=== PATIENT | male | born 1970 | race Caucasian/White ===

== ENCOUNTER 2016-06-11 11:16 | Observation (INO) | payer OTHER ==
[2016-06-11 11:16] VITALS: BMI 26.4
[2016-06-11 11:28] VITALS: RESP 18
--- NOTE | 2016-06-11 12:22 | C.PDOC ---
History Of Present Illness 45 y/o male, PMHx of chronic back pain, presents to ED with complaint of lower back pain. Patient states the pain is different than typical back pain, now worse on the right side. Patient also reports pain to RLQ abdomen and right inguinal area for 1 week. He notes pain has been intermittent but worsened today at work. Patient admits to heavy lifting; he denies history of hernias. Otherwise, denies nausea, vomiting, bowel changes, urinary incontinence, bowel incontinence, weakness, or numbness. Time Seen by Provider: 06/11/16 12:11 Chief Complaint (Nursing): Male Genitourinary History Per: Patient History/Exam Limitations: no limitations Onset/Duration Of Symptoms: Days Current Symptoms Are (Timing): Still Present Location Of Pain/Discomfort: RLQ Radiation Of Pain To:: None Quality Of Discomfort: "Pain" Associated Symptoms: denies: Fever, Chills, Nausea, Vomiting, Diarrhea, Urinary Symptoms Recent travel outside of the [place]: No Past Medical History Reviewed: Historical Data, Nursing Documentation, Vital Signs Vital Signs: Last Vital Signs Temp 97.9 F 06/11/16 15:05 Pulse 75 06/11/16 15:05 Resp 18 06/11/16 15:05 BP 126/76 06/11/16 15:05 Pulse Ox 100 06/11/16 15:07 - Medical History PMH: Diabetes (type II), Hypercholesterolemia Family History: States: Unknown Family Hx - Social History Hx Alcohol Use: No Hx Substance Use: No - Immunization History Hx Tetanus Toxoid Vaccination: No Hx Influenza Vaccination: No Hx Pneumococcal Vaccination: No Review Of Systems Except As Marked, All Systems Reviewed And Found Negative. Constitutional: Negative for: Fever, Chills Cardiovascular: Negative for: Chest Pain Respiratory: Negative for: Cough, Shortness of Breath Gastrointestinal: Positive for: Abdominal Pain. Negative for: Nausea, Vomiting Genitourinary: Negative for: Dysuria, Frequency, Incontinence, Hematuria Musculoskeletal: Positive for: Back Pain Skin: Negative for: Rash Physical Exam - Physical Exam Appears: Non-toxic, No Acute Distress Skin: Normal Color, Warm, Dry Head: Atraumatic, Normacephalic Oral Mucosa: Moist Chest: Symmetrical Cardiovascular: Rhythm Regular Respiratory: No Rales, No Rhonchi, No Wheezing Gastrointestinal/Abdominal: Soft, Tenderness (RLQ), No Distention, No Guarding, No Rebound, No Hernia Back: Normal Inspection, No CVA Tenderness Male Genital: No Testicular Tenderness, No Testicular Swelling, No Inguinal Tenderness, No Scrotal Swelling, Other (no hernia) Extremity: Normal ROM, Capillary Refill (< 2 sec. ) Neurological/Psych: Oriented x3, Normal Speech, Normal Cognition ED Course And Treatment - Laboratory Results Result Diagrams: 06/11/16 12:46 06/11/16 12:46 O2 Sat by Pulse Oximetry: 100 (RA) Pulse Ox Interpretation: Normal - CT Scan/US CT Abd/Pel w/ contrast Other Rad Studies (CT/US): Interpreted By Me, Read By Radiologist CT/US Interpretation: PROCEDURE: CT Abdomen and Pelvis with contrast. HISTORY : RLQ abd pain. COMPARISON: None available. TECHNIQUE: Contrast dose: 100 mL Visipaque. Radiation dose: Total exam DLP = 812.64 mGy-cm. This CT exam was performed using one or more of the following dose reduction techniques: Automated exposure control, adjustment of the mA and/or kV according to patient size, and/or use of iterative reconstruction technique. FINDINGS: LOWER THORAX : Minimal basilar atelectasis. No visible pleural effusion or pneumothorax. LIVER: Hypoattenuation of the liver compatible with hepatic steatosis. GALLBLADDER AND BILE DUCTS: Unremarkable. PANCREAS: Unremarkable. SPLEEN: Unremarkable. ADRENALS: Unremarkable. KIDNEYS AND URETERS: The kidneys enhance symmetrically. No hydronephrosis or obstructing calculus identified. VASCULATURE: No aortic aneurysm. BOWEL: Stomach is nondistended. Lack of oral contrast limits evaluation for bowel pathology. Bowel loops appear within normal limits of caliber without evidence of obstruction. Diverticulosis without CT evidence of acute diverticulitis. APPENDIX: The appendix appears within normal limits of caliber. No secondary signs of acute appendicitis. PERITONEUM: No significant free fluid. No definite free air. LYMPH NODES: No bulky adenopathy identified. BLADDER: Thick-walled under distended urinary bladder. REPRODUCTIVE: The prostate gland measures approximately 2.8 x 3.8 cm and contains calcifications. BONES: Mild degenerative changes. OTHER FINDINGS : None. IMPRESSION: Hypoattenuation of the liver compatible with hepatic steatosis. Diverticulosis without CT evidence of acute diverticulitis. The appendix appears within normal limits of caliber. No secondary signs of acute appendicitis. Urinary bladder wall thickening may be exaggerated by under distension. Recommend correlation with urinalysis. Medical Decision Making Medical Decision Making: Progress: Patient with RLQ abdominal pain radiates to back. Suspect appendicitis, constipation or hernia. Will order CT and place on observation ED OBSERVATION Discharge: Yes Date of observation admission: 06/11/16 Time of observation admission: 12:22 - Observation admission statement Patient is being placed in observation because:: RLQ abdominal pain - Goals of Observation Goals of observation are:: IV hydration, analgesics, labs and CT imaging - Progress Note Progress Note: 06/11/16 13:06 Labs reviewed, no leukocytosis, bands or shift. Chloride is low. Order additional fluids. CT pending 06/11/16 14:53 CT IMPRESSION: Hypoattenuation of the liver compatible with hepatic steatosis. Diverticulosis without CT evidence of acute diverticulitis. The appendix appears within normal limits of caliber. No secondary signs of acute appendicitis. Urinary bladder wall thickening may be exaggerated by under distension. Recommend correlation with urinalysis. Patient re-evaluated and was sleeping comfortably on stretcher. Patient reports feeling better abdominal pain has resolved. Abdomen remains soft, no guarding or rebound to suggest surgical pathology. I discussed results of CT and labs with patient and advise dietary changes for diverticulosis. Patient feels comfortable going home and will follow up with PCP. Disposition Counseled Patient/Family Regarding: Studies Performed, Diagnosis, Need For Followup, Rx Given - Disposition Disposition: HOME/ ROUTINE Disposition Time: 14:56 Condition: IMPROVED - POA Present On Arrival: None - Clinical Impression Clinical Impression: Diverticulosis - PA / PSYCHOLOGIST PRIVATE PRACTICE / Resident Statement MD/DO has reviewed & agrees with the documentation as recorded. - Scribe Statement The provider has reviewed the documentation as recorded by the Brayden Ortega Provider Jessicaibe Attestation: All medical record entries made by the Brayden were at my direction and personally dictated by me. I have reviewed the chart and agree that the record accurately reflects my personal performance of the history, physical exam, medical decision making, and the department course for this patient. I have also personally directed, reviewed, and agree with the discharge instructions and disposition.
[2016-06-11 12:50] LABS: BASO % 0.5 % (0.0-2.0); EOS # 0.2 K/uL (0.0-0.7); EOS % 2.6 % (0.0-4.0); HEMATOCRIT 46.5 % (35.0-51.0); LYMPH # 2.2 K/uL (1.0-4.3); LYMPH % 27.3 % (20.0-40.0); MEAN CELL VOLUME 90.8 fL (80.0-94.0); MEAN CORPUSCULAR HEMOGLOBIN 31.1 pg (27.0-31.0); MEAN CORPUSCULAR HGB CONC 34.2 g/dL (33.0-37.0); MEAN PLATELET VOLUME 9.2 fL (7.2-11.7); MONO # 0.5 K/uL (0.0-0.8); NRBC % 0.1 % (0.0-2.0); RED CELL DISTRIBUTION WIDTH 13.6 % (11.5-14.5); WHITE BLOOD COUNT 8.2 K/uL (4.8-10.8)
[2016-06-11 12:58] LABS: CHLORIDE 89 mmol/L (98-107)
[2016-06-11 12:59] LABS: POTASSIUM 3.6 mmol/L (3.6-5.2); SODIUM 138 mmol/L (132-148)
[2016-06-11 13:01] LABS: ALB/GLOB RATIO 1.8 (1.0-2.1); ALKALINE PHOSPHATASE 73 U/L (38-126); ALT/SGPT 63 U/L (21-72); AST/SGOT 63 U/L (17-59); BILIRUBIN,TOTAL 1.3 mg/dL (0.2-1.3); BLOOD UREA NITROGEN 20 mg/dL (9-20); CALCIUM 9.3 mg/dl (8.6-10.4); CARBON DIOXIDE 28 mmol/L (22-30); GFR AFRICAN-AMERICAN > 60; GLUCOSE,RANDOM 140 mg/dL (75-110); TOTAL PROTEIN 7.5 g/dL (6.3-8.3)
[2016-06-11] MEDS ORDERED: Sodium Chloride 0.9% 1,000 ML IV ONE (13:06)
[2016-06-11] MEDS ORDERED: Iodixanol 320 mg/ml 150 ml Bottle IV ONE (13:21)
[2016-06-11 13:37] LABS: RBC URINE 2 /hpf (0-3); URINE BACTERIA OCC (<OCC); URINE BILIRUBIN NEGATIVE (NEGATIVE); URINE BLOOD NEGATIVE (NEGATIVE); URINE GLUCOSE (UA) NORMAL (Normal); URINE HYALINE CAST 0-2 /lpf (0-2); URINE KETONE 1+ mg/dL (NEGATIVE); URINE LEUKOCYTE ESTERASE NEG Leu/uL (Negative); URINE PROTEIN 2+ mg/dL (NEGATIVE); WBC URINE 2 /hpf (0-5)
[2016-06-11 13:40] LABS: URINE COLOR YELLOW (YELLOW)
--- NOTE | 2016-06-11 14:32 | CT ---
PROCEDURE: CT Abdomen and Pelvis with contrast HISTORY: RLQ abd pain COMPARISON: None available TECHNIQUE: Contrast dose: 100 mL Visipaque Radiation dose: Total exam DLP = 812.64 mGy-cm. This CT exam was performed using one or more of the following dose reduction techniques: Automated exposure control, adjustment of the mA and/or kV according to patient size, and/or use of iterative reconstruction technique. FINDINGS: LOWER THORAX: Minimal basilar atelectasis. No visible pleural effusion or pneumothorax. LIVER: Hypoattenuation of the liver compatible with hepatic steatosis. GALLBLADDER AND BILE DUCTS: Unremarkable. PANCREAS: Unremarkable. SPLEEN: Unremarkable. ADRENALS: Unremarkable. KIDNEYS AND URETERS: The kidneys enhance symmetrically. No hydronephrosis or obstructing calculus identified. VASCULATURE: No aortic aneurysm. BOWEL: Stomach is nondistended. Lack of oral contrast limits evaluation for bowel pathology. Bowel loops appear within normal limits of caliber without evidence of obstruction. Diverticulosis without CT evidence of acute diverticulitis. APPENDIX: The appendix appears within normal limits of caliber. No secondary signs of acute appendicitis. PERITONEUM: No significant free fluid. No definite free air. LYMPH NODES: No bulky adenopathy identified. BLADDER: Thick-walled under distended urinary bladder. REPRODUCTIVE: The prostate gland measures approximately 2.8 x 3.8 cm and contains calcifications. BONES: Mild degenerative changes. OTHER FINDINGS: None. IMPRESSION: Hypoattenuation of the liver compatible with hepatic steatosis. Diverticulosis without CT evidence of acute diverticulitis. The appendix appears within normal limits of caliber. No secondary signs of acute appendicitis. Urinary bladder wall thickening may be exaggerated by under distension. Recommend correlation with urinalysis.
[2016-06-11 15:07] VITALS: BP 126/76; PULSE 75; TEMP 97.9; O2SAT 100
== END 2016-06-11 14:56 | disposition home or self-care (01) ==
LOC: C.ER 11:16 → C.9OBSV 12:21
PROVIDERS: ADMIT Emergency Medicine; ATTEND Emergency Medicine
DX: K57.90 Diverticulosis of intestine, part unspecified, without perforation or abscess without bleeding (principal); E78.00 Pure hypercholesterolemia, unspecified; E11.9 Type 2 diabetes mellitus without complications
CPT/HCPCS: 36415; 74177; 80053; 81001; 83690; 85025; 87086; 96360; 96374; G0378; Q9965

== ENCOUNTER 2017-01-20 22:13 | Emergency (ER) | payer OTHER ==
[2017-01-20 22:13] VITALS: BMI 26.4
[2017-01-20 22:33] VITALS: BP 131/83; PULSE 92; RESP 18; TEMP 98.9; O2SAT 96
== END 2017-01-20 22:32 | disposition left against medical advice (07) ==
LOC: C.ER 22:13
DX: Z02.89 Encounter for other administrative examinations (principal); F19.10 Other psychoactive substance abuse, uncomplicated

== ENCOUNTER 2017-08-07 15:16 | Emergency (ER) | payer OTHER ==
[2017-08-07 15:16] VITALS: BMI 26.4
--- NOTE | 2017-08-07 15:34 | C.PDOC ---
Time Seen by Provider: 08/07/17 15:32 Past Medical History - Medical History PMH: Diabetes (type II), Hypercholesterolemia Family History: States: Unknown Family Hx - Social History Hx Alcohol Use: Yes Hx Substance Use: Yes (COCAINE) - Immunization History Hx Tetanus Toxoid Vaccination: No Hx Influenza Vaccination: No Hx Pneumococcal Vaccination: No Disposition Counseled Patient/Family Regarding: Diagnosis, Need For Followup - Disposition Referrals: [facility] [Outside] [facility] [Outside] Disposition: HOME/ ROUTINE Condition: GOOD
[2017-08-07 15:36] VITALS: O2SAT 98
--- NOTE | 2017-08-07 15:45 | C.PDOC ---
History Of Present Illness 46 Y/O MALE PRESENTS TO THE ED COMPLAINING OF NEW ONSET REDNESS WITH SWELLING AND PAIN TO THE FRONT OF NECK FOR 3 DAYS. PATIENT HAS APPLIED TOPICAL ALCOHOL TO DRY OUT AREA BUT NOTED NO IMPROVEMENT. PATIENT DENIES SQUEEZING AREA, FEVER, OR OTHER SYMPTOMS. NEW ONSET REDNESS, SWELLING PAIN FRONT OF NECK X 3 DAYS. PS TRIED TOPICAL ALCOHOL TO DRY OUT AREA BUT NO IMPROVE. DENIES SQUEEZING AREA. NO FEVER, OTHER ASSOC SX EXAM MILD DIST SKIN +ABSCESS ANTERIOR NECK NEAR KORI APPLE. +MILD LOCAL ERYTHEMA NECK SUPPLE NO SWELL NO STRIDOR REMAINDER NEG Time Seen by Provider: 08/07/17 15:32 Chief Complaint (Nursing): Abnormal Skin Integrity History Per: Patient History/Exam Limitations: no limitations Onset/Duration Of Symptoms: Days Current Symptoms Are (Timing): Still Present Location Of Injury: Anterior: Neck Past Medical History Reviewed: Historical Data, Nursing Documentation, Vital Signs Vital Signs: Last Vital Signs Temp 98.7 F 08/07/17 15:30 Pulse 90 08/07/17 15:30 Resp 18 08/07/17 15:30 BP 126/82 08/07/17 15:30 Pulse Ox 98 08/07/17 16:12 - Medical History PMH: Diabetes (type II), Hypercholesterolemia Other Surgeries: Hx of surgeries Family History: States: No Known Family Hx - Social History Hx Alcohol Use: Yes Hx Substance Use: Yes (COCAINE (former)) - Immunization History Hx Tetanus Toxoid Vaccination: No Hx Influenza Vaccination: No Hx Pneumococcal Vaccination: No Review Of Systems Except As Marked, All Systems Reviewed And Found Negative. Constitutional: Negative for: Fever, Chills Gastrointestinal: Negative for: Nausea, Vomiting Musculoskeletal: Positive for: Neck Pain (Pain, swelling, redness to anterior aspect of neck ) Neurological: Negative for: Headache Physical Exam - Physical Exam Appears: Non-toxic, Other (Mild distress) Skin: Other ( +ABSCESS ANTERIOR NECK NEAR KORI APPLE. +MILD LOCAL ERYTHEMA) Head: Atraumatic, Normacephalic Eye(s): bilateral: Normal Inspection Oral Mucosa: Moist Neck: Supple, No Other (swelling, stridor ) Chest: Symmetrical Cardiovascular: Rhythm Regular Respiratory: Normal Breath Sounds, No Rales, No Rhonchi, No Wheezing Extremity: Normal ROM Neurological/Psych: Oriented x3, Normal Speech Gait: Steady ED Course And Treatment O2 Sat by Pulse Oximetry: 98 (RA) Pulse Ox Interpretation: Normal Progress Note: Patient given pain meds and injection of Xylocaine 2% with Epi. Patient instructed to follow up with Clinic. - Incision & Drainage Of Abscess Anesthesia: Lidocaine 2%, With Epi Prep Used: Sterile Water, Betadine Procedure: Incised W/Scalpel Blade#: (11; LIMITED FULL DEPTH INCISION DUE TO ANATOMIC LIMITATION), Drained Pus, Probed To Break Up Loculations, Packed W/ Gauze Disposition Counseled Patient/Family Regarding: Diagnosis, Need For Followup, Rx Given, Smoking Cessation - Disposition Referrals: [facility] [Outside] [facility] [Outside] Disposition: HOME/ ROUTINE Disposition Time: 16:22 Condition: GOOD Additional Instructions: RETURN 2 DAYS FOR PACKING CHANGE, WOUND REEVALUATION. Prescriptions: Cephalexin [cephalexin] 500 mg PO BID #14 cap Instructions: Abscess Incision and Drainage (DC), Quitting Smoking - Clinical Impression Clinical Impression: Abscess - Scribe Statement The provider has reviewed the documentation as recorded by the Brayden Reich All medical record entries made by the Brayden were at my direction and personally dictated by me. I have reviewed the chart and agree that the record accurately reflects my personal performance of the history, physical exam, medical decision making, and the department course for this patient. I have also personally directed, reviewed, and agree with the discharge instructions and disposition.
[2017-08-07] MEDS ORDERED: Lidocaine 2% w Epi 1:100,000 Inj IJ STA (15:46)
[2017-08-07 16:29] VITALS: BP 113/72; PULSE 74; RESP 20; TEMP 99.3
== END 2017-08-07 16:40 | disposition home or self-care (01) ==
LOC: C.ER 15:16
DX: L02.11 Cutaneous abscess of neck (principal); E11.9 Type 2 diabetes mellitus without complications; E78.00 Pure hypercholesterolemia, unspecified

== ENCOUNTER 2017-08-09 09:37 | Emergency (ER) | payer OTHER ==
[2017-08-09 09:37] VITALS: BMI 26.4
[2017-08-09 09:44] VITALS: RESP 20
[2017-08-09] MEDS ORDERED: Lidocaine 2% w Epi 1:100,000 Inj IJ STA (09:57)
--- NOTE | 2017-08-09 09:59 | C.PDOC ---
History Of Present Illness 46 y/o male presents to the ED for wound check of his neck. Patient is s/p I&D on 07/28/17. He reports persistent swelling to the area, but overall improvement. Denies fever or chills. Patient states he is compliant with antibiotics. FOR WOUND CHECK S/P I&D 07/28. PS STILL W PERSIST SWELLING BUT IMPROVED FROM INITIAL. NO FEVER. COMPLIANT W ABX EXAM NAD NONTOXIC SKIN +OPEN WOUND, PACKING IN PLACE FRONT OF NECK. +PERSIST FLUCTUANCE, MOD PURULENT DC. MIN ERYTHEMA REMAIDNER NEG MDM PERSIST ABSCESS, NEED FOR INCISION REVISION AND REPEAT I&D. PT ADVISED POTENTIAL FOR SCAR FORMATION, VOICES UNDERSTANDING AND AGREES TO REPEAT I&D. PT ADVISED MAY POTENTIALLY NEED SURGICAL EVAL FOR MORE IN DEPTH WOUND DRAINAGE Time Seen by Provider: 08/09/17 09:53 Chief Complaint (Nursing): Wound Check History Per: Patient History/Exam Limitations: no limitations Onset/Duration Of Symptoms: Days Ago (x12) Current Symptoms Are (Timing): Better Quality Of Symptoms: Swollen, Draining Past Medical History Reviewed: Historical Data, Nursing Documentation, Vital Signs Vital Signs: Last Vital Signs Temp 99 F 08/09/17 10:57 Pulse 76 08/09/17 10:57 Resp 20 08/09/17 10:57 BP 133/93 H 08/09/17 10:57 Pulse Ox 97 08/09/17 11:40 - Medical History PMH: Back Problems, Diabetes (type II), Hypercholesterolemia Surgical History: No Surg Hx Family History: States: Unknown Family Hx - Social History Hx Tobacco Use: Yes Hx Alcohol Use: Yes Hx Substance Use: Yes (COCAINE (former)) - Immunization History Hx Tetanus Toxoid Vaccination: No Hx Influenza Vaccination: No Hx Pneumococcal Vaccination: No Review Of Systems Except As Marked, All Systems Reviewed And Found Negative. Constitutional: Negative for: Fever, Chills Skin: Positive for: Other (wound to neck, +swelling, +drainage) Physical Exam - Physical Exam Appears: Non-toxic, No Acute Distress Skin: Warm, Dry, Other (Open wound noted, packing in place to front of neck, + persistent fluctuance, with moderate purulent discharge, and minimal erythema) Head: Atraumatic, Normacephalic Eye(s): bilateral: Normal Inspection, PERRL, EOMI Oral Mucosa: Moist Neck: Normal ROM, Trachea Midline Chest: Symmetrical Respiratory: Other (NARD) Pulses: Left Radial: Normal, Right Radial: Normal Neurological/Psych: Oriented x3, Normal Speech ED Course And Treatment O2 Sat by Pulse Oximetry: 97 (RA) Pulse Ox Interpretation: Normal Progress - Data Reviewed Data Reviewed: Old records Medical Decision Making Medical Decision Making: Impression: Persistent abscess Plan: --Wound requires incision revision and repeat I&D (see procedure note) --PO Tylenol and Motrin for pain control Patient advised of the potential for scar formation, and verbalizes understanding. Agrees to plan for repeat I&D. Patient advised he may need surgical evaluation for more in-depth wound drainage. Disposition Counseled Patient/Family Regarding: Diagnosis, Need For Followup - Disposition Referrals: [facility] [Outside] [facility] [Outside] Disposition: HOME/ ROUTINE Disposition Time: 10:42 Condition: IMPROVED Additional Instructions: RETURN 2 DAYS FOR PACKING CHANGE/WOUND REEVALUATION. CHANGE DRESSING INSTRUCTED. Instructions: Abscess Incision and Drainage (DC) Forms: [employer] (Latvian), Work Excuse - Clinical Impression Clinical Impression: Abscess, Wound check, abscess - Scribe Statement The provider has reviewed the documentation as recorded by the Scribe (Rebecca Bruce) Provider Attestation: All medical record entries made by the Scribe were at my direction and personally dictated by me. I have reviewed the chart and agree that the record accurately reflects my personal performance of the history, physical exam, medical decision making, and the department course for this patient. I have also personally directed, reviewed, and agree with the discharge instructions and disposition. - Incision & Drainage Of Abscess Anesthesia: Lidocaine 2%, With Epi Prep Used: Betadine Procedure: Incised W/Scalpel Blade#: (11), Drained Pus, Irrigated Cavity W/ Saline, Probed To Break Up Loculations, Packed W/Gauze
[2017-08-09 10:58] VITALS: BP 133/93; PULSE 76; TEMP 99
[2017-08-09 11:32] VITALS: O2SAT 97
== END 2017-08-09 10:59 | disposition home or self-care (01) ==
LOC: C.ER 09:37
DX: Z48.00 Encounter for change or removal of nonsurgical wound dressing (principal); L02.11 Cutaneous abscess of neck; E11.9 Type 2 diabetes mellitus without complications; E78.00 Pure hypercholesterolemia, unspecified; Z72.0 Tobacco use

== ENCOUNTER 2017-08-11 09:25 | Emergency (ER) | payer OTHER ==
[2017-08-11 09:25] VITALS: BMI 26.4
[2017-08-11 09:45] VITALS: BP 141/85; PULSE 84; RESP 20; TEMP 98.3; O2SAT 97
--- NOTE | 2017-08-11 09:48 | C.PDOC ---
History Of Present Illness 46-year-old male, otherwise well, comes to ER for evaluation of an I&D wound on his anterior neck after an abscess was drained 4 days ago. Patient states he still has pain (4/5 out of 10) and reports mild drainage from the site. He denies any fever, chills, and offers no other complaints. Time Seen by Provider: 08/11/17 09:44 Chief Complaint (Nursing): Wound Check History Per: Patient History/Exam Limitations: no limitations Onset/Duration Of Symptoms: Days Current Symptoms Are (Timing): Still Present Additional History Per: Patient Past Medical History Reviewed: Historical Data, Nursing Documentation, Vital Signs Vital Signs: Last Vital Signs Temp 98.3 F 08/11/17 09:35 Pulse 84 08/11/17 09:35 Resp 20 08/11/17 09:35 BP 141/85 08/11/17 09:35 Pulse Ox 97 08/11/17 13:24 - Medical History PMH: Back Problems, Diabetes (type II), Hypercholesterolemia Surgical History: No Surg Hx Family History: States: No Known Family Hx - Social History Hx Tobacco Use: Yes Hx Alcohol Use: Yes Hx Substance Use: Yes (COCAINE (former)) - Immunization History Hx Tetanus Toxoid Vaccination: Yes Hx Influenza Vaccination: No Hx Pneumococcal Vaccination: No Review Of Systems Except As Marked, All Systems Reviewed And Found Negative. Constitutional: Negative for: Fever, Chills Skin: Positive for: Other (I&D wound to anterior neck) Physical Exam - Physical Exam Appears: Non-toxic, No Acute Distress Skin: Warm, Dry, Other (large indurated area on anterior neck with incision and paciking in place. some purulent drainage noted.) Head: Normacephalic Eye(s): bilateral: Normal Inspection Neck: Normal ROM, Supple Chest: Symmetrical Cardiovascular: Rhythm Regular Respiratory: Normal Breath Sounds Neurological/Psych: Oriented x3 ED Course And Treatment O2 Sat by Pulse Oximetry: 97 (RA) Pulse Ox Interpretation: Normal Medical Decision Making Medical Decision Making: Impression: Wound check Plan: -- I&D site cleaned, irrigated and fresh packing placed by provider. Patient instructed on wound care and informed to follow up with PMD in 2-3 days. Disposition Counseled Patient/Family Regarding: Diagnosis, Need For Followup - Disposition Disposition: HOME/ ROUTINE Disposition Time: 09:47 Condition: STABLE Additional Instructions: Keep area clean and dry for 2 more days. Return to ED or your doctor for wound evaluation in 2 days. Forms: General Discharge Instructions, [employer] (Albanian) - POA Present On Arrival: None - Clinical Impression Clinical Impression: Visit for wound check - Scribe Statement The provider has reviewed the documentation as recorded by the Scribe (Jenny Tong) Provider Attestation: All medical record entries made by the Scribe were at my direction and personally dictated by me. I have reviewed the chart and agree that the record accurately reflects my personal performance of the history, physical exam, medical decision making, and the department course for this patient. I have also personally directed, reviewed, and agree with the discharge instructions and disposition.
== END 2017-08-11 10:04 | disposition home or self-care (01) ==
LOC: C.ER 09:25
DX: Z48.00 Encounter for change or removal of nonsurgical wound dressing (principal); E11.9 Type 2 diabetes mellitus without complications; E78.00 Pure hypercholesterolemia, unspecified; Z72.0 Tobacco use

== ENCOUNTER 2017-08-13 10:02 | Emergency (ER) | payer OTHER ==
[2017-08-13 10:12] VITALS: BMI 27.1
[2017-08-13] MEDS ORDERED: Bacitracin 500 Units/gm Oint Foilpak UD TOP ONE (10:52)
[2017-08-13] MEDS ORDERED: Bacitracin 500 Units/gm Oint Foilpak UD ONE (10:56)
--- NOTE | 2017-08-13 10:56 | C.PDOC ---
Time Seen by Provider: 08/13/17 10:23 Chief Complaint (Nursing): Wound Check History Per: Patient Onset/Duration Of Symptoms: Days Ago (6), Abscess Current Symptoms Are (Timing): Better Location Of Injury: Anterior: Neck Severity: Mild Additional History Per: Prior Records Past Medical History Reviewed: Historical Data, Nursing Documentation, Vital Signs Vital Signs: Last Vital Signs Temp 99.0 F 08/13/17 10:12 Pulse 95 H 08/13/17 10:12 Resp 18 08/13/17 10:12 BP 109/73 08/13/17 10:12 Pulse Ox 96 08/13/17 10:12 - Medical History PMH: Back Problems, Diabetes (type II), Hypercholesterolemia Family History: States: Unknown Family Hx - Social History Hx Tobacco Use: Yes Hx Alcohol Use: No Hx Substance Use: Yes (COCAINE (former)) - Immunization History Hx Tetanus Toxoid Vaccination: Yes Hx Influenza Vaccination: No Hx Pneumococcal Vaccination: No Review Of Systems Except As Marked, All Systems Reviewed And Found Negative. Constitutional: Negative for: Fever, Weakness ENT: Negative for: Throat Pain Respiratory: Negative for: Shortness of Breath Gastrointestinal: Negative for: Vomiting Skin: Negative for: Rash Neurological: Negative for: Weakness, Numbness Physical Exam - Physical Exam Appears: Non-toxic, No Acute Distress Skin: Normal Color, Warm, Dry Head: Atraumatic, Normacephalic Eye(s): bilateral: PERRL, EOMI Oral Mucosa: Moist, No Drooling, No Trismus Neck: Normal ROM, Supple, Other (Healing abscess on right anterior neck pack with gauze.) Lymphatic: No Adenopathy Extremity: Normal ROM Neurological/Psych: Oriented x3, Normal Speech, Normal Motor, Normal Sensation ED Course And Treatment O2 Sat by Pulse Oximetry: 96 Pulse Ox Interpretation: Normal Progress Note: Packing was removed by me. Wound was re-dressed by RN. Pt states that wound is much better. Reassessment Condition: Improved Disposition Counseled Patient/Family Regarding: Diagnosis, Need For Followup - Disposition Disposition: HOME/ ROUTINE Disposition Time: 10:56 Condition: STABLE Additional Instructions: Keep wound clean and dressed. Follow up with your doctor. Return to the ER if you develop redness, swelling, fever, worsening of symptoms or if you have any other concerns. Instructions: Boil (DC) - Clinical Impression Clinical Impression: Abscess re-check
[2017-08-13 11:08] VITALS: BP 123/60; PULSE 70; RESP 16; TEMP 98.2; O2SAT 100
== END 2017-08-13 11:07 | disposition home or self-care (01) ==
LOC: C.ER 10:02
DX: L02.11 Cutaneous abscess of neck (principal)